=== PATIENT | female | born 1965 | race Caucasian/White ===

== ENCOUNTER 2019-02-28 07:57 | Day surgery (SDC) | payer BC ==
[~2019-02-28 07:57] MED LIST: Lidocaine 1% MPF wEPI 200,000* 30 ML SDV ONE
[2019-02-28] MEDS ORDERED: Bupivacaine 0.25% SDV* 30 ML ONE (10:36)
[2019-02-28 12:42] VITALS: BP 133/82
--- NOTE | 2019-02-28 22:29 | OP ---
DATE OF OPERATION: 02/28/19 [facility] DATE OF : 63 SURGEON: Salas Lo MD FIRE OFFICIAL: None. ANESTHESIOLOGIST: None. ANESTHESIA: Local only with 1% lidocaine with epinephrine and bicarbonate. PRE-OP DIAGNOSIS: Left trigger thumb. POST-OP DIAGNOSIS: Left trigger thumb. OPERATIVE PROCEDURE: Left trigger thumb release of A1 armando. INDICATIONS: Antonella has a very severe trigger thumb, it is locked, and we talked about risks and benefits and treatment options, and she wanted to proceed with trigger thumb release. EBL: Less than 5 mL. COMPLICATIONS: None. FINDINGS: See above and below. DESCRIPTION OF PROCEDURE: Antonella was seen in the preoperative holding area. The correct site, side, and procedure were identified. We had a time-out and I infiltrated the operative area with 1% lidocaine with epinephrine and bicarbonate. The patient was then brought back to the operating room. The arm was prepped and draped in the usual fashion and a time-out was performed. I made a 1 cm transverse incision in the MP joint flexion crease. Full thickness flaps were raised off the tendon sheath. Ragnell retractors were placed. The digital nerves were protected. A1 armando was released. I then had her flex and extend the thumb multiple times. There was no more catching. I irrigated out the wound. Skin was closed with 4-0 nylon suture. Soft dressing was applied and she was taken to the recovery room in stable condition. [id number]/[facility] #: [id number] MTDD
== END 2019-02-28 11:59 | disposition home or self-care (01) ==
LOC: OREAST 07:57
PROVIDERS: ATTEND Orthopaedic Surgery Hand Surgery
DX: M65.312 Trigger thumb, left thumb (principal); K50.90 Crohn's disease, unspecified, without complications; E78.00 Pure hypercholesterolemia, unspecified; Z87.891 Personal history of nicotine dependence
CPT/HCPCS: J2001; J3490

== ENCOUNTER 2019-08-29 12:14 | Day surgery (SDC) | payer BC ==
[2019-08-29] MEDS ORDERED: Lidocaine 1% w EPI 1:200,000* SDV 30 ML VIAL ONE ×2 (12:56→13:05)
[2019-08-29] MEDS ORDERED: Sodium Bicarbonate 8.4% IV* 50 ML VIAL ONE (12:56)
[2019-08-29] MEDS ORDERED: Lidocaine 2% w/ EPI 1:200,000* 20 ML SDV VIAL ONE (13:03)
[2019-08-29] MEDS ORDERED: Bupivacaine 0.25% SDV PF* 10 ML VIAL INJ ONE ×2 (13:33→14:05)
[2019-08-29 15:22] VITALS: BP 135/85
--- NOTE | 2019-08-29 23:33 | OP ---
DATE OF OPERATION: 08/29/19 [facility] DATE OF : 63 SURGEON: Salas Lo MD TRANSPORTATION SERVICES REPRESENTATIVE: SHERRI Austin ANESTHESIOLOGIST: None. ANESTHESIA: Local only with 1% buffered lidocaine with epinephrine. PRE-OP DIAGNOSIS: Right thumb, middle, and ring trigger fingers. POST-OP DIAGNOSIS: Right thumb, middle, and ring trigger fingers. OPERATIVE PROCEDURES: 1. Right trigger thumb release. 2. Right middle trigger finger release. 3. Right ring trigger finger release. INDICATIONS: Antonella is 54 years old. She has triggering in the right thumb, middle, and ring fingers. The ring finger is probably the worst. The thumb is quite sore as well. We talked about her treatment options. She wanted to proceed with surgery. ESTIMATED BLOOD LOSS: 2 mL. COMPLICATIONS: None. FINDINGS: See above and below. DESCRIPTION OF PROCEDURE: Antonella was seen in the preoperative holding area. The correct site, side, and procedure were identified. We came back to the operating room. The arm was prepped and draped in the usual fashion and a time- out was performed. The arm was exsanguinated with the Esmarch and the tourniquet was inflated to 200 mmHg. I went ahead and made a longitudinal incision over the ring finger A1 armando area. I then developed the distal hoffmann crease over the middle finger A1 armando. I made a transverse incision in the thumb MP joint flexion crease. Dissection was carried down with the tenotomy scissors and full- thickness flaps were bluntly raised off the tendon sheath. I began on the ring finger and I placed the Ragnell retractors. A 15-blade was used to release the A1 armando. There was a lot of synovitis that was all excised. It was obvious where the tendon had been tethered by the tendon sheath. I released just the leading edge of the A2 armando as well. I cleaned up the tendons. I freed up any adhesions between the tendons. At this point, everything was looking good and we turned our attention to the middle finger. In a similar fashion, I placed Ragnell retractors and I released the middle finger A1 amrando. The release was completed distally and proximally with the tenotomy scissors. The tendons were cleaned. I then came to the thumb and placed the Ragnell retractors. Great care was taken to preserve the digital nerves. The 15-blade was used to release the A1 armando. The release was extended distally and proximally with the tenotomy scissors. At this point, everything was looking very good. The wounds were irrigated out. Skin was closed with 4-0 nylon suture. Soft dressings were applied. 0.25% Marcaine was infiltrated about the area and she was taken to the recovery room in stable condition. [id number]/[facility] #: [id number] EARL
== END 2019-08-29 15:21 | disposition home or self-care (01) ==
LOC: OREAST 12:14
PROVIDERS: ATTEND Orthopaedic Surgery Hand Surgery
DX: M65.331 Trigger finger, right middle finger (principal); M65.311 Trigger thumb, right thumb; M65.341 Trigger finger, right ring finger; I10 Essential (primary) hypertension; E78.00 Pure hypercholesterolemia, unspecified; M19.90 Unspecified osteoarthritis, unspecified site; K21.9 Gastro-esophageal reflux disease without esophagitis; F50.2 Bulimia nervosa; K50.90 Crohn's disease, unspecified, without complications
CPT/HCPCS: J2001; J3490